=== PATIENT | female | born 1995 | race Caucasian/White ===

== ENCOUNTER 2019-03-23 16:11 | Emergency (ER) | payer OTHER ==
[~2019-03-23] VITALS: Ht 167.6 cm; Wt 54.0 kg
[~2019-03-23 16:11] MED LIST: [UNRECOGNIZED DRUG - REMARK]
--- NOTE | 2019-03-23 16:39 | NUR ---
Patient is was in room drinking water very rapidly then threw her glass on the ground and started screaming and crying. I went in the room to talk to the patient and she continues to scream and cry stating that her mom brought her here because she needs a physical check up. Patient states that she would never want to hurt any one cause that isnt right and she doesnt want to hurt her self becuase life is beautiful. only demons want to hurt people she states that she believes demons are out there because she is a Taoism. Patient is very uncooperative in the interview and states that she only wants a check up becuase her mom is crazy. Patient will randomly scream and cry through interview. Patient states that she was on depression medication but she doesnt like to take medications so she smokes weed.
[2019-03-23] MEDS ORDERED: diphenhydrAMINE 50 mg/ml inj IM ONE (16:50)
[2019-03-23] MEDS ORDERED: haloperidol lactate 5mg/ml inj IM ONE (16:50)
--- NOTE | 2019-03-23 17:12 | NUR ---
PATIENT NOW IN GREEN SCRUBS TOP AND BOTTOM; VERY RANDOM SPEECH EASILY GOES FROM CRYING, SCREAMING TO POLITE TALK, SECURITY AT BEDSIDE
--- NOTE | 2019-03-23 17:13 | NUR ---
PATIENT EATING BANANA AND DRANK 240 ML WATER
--- NOTE | 2019-03-23 17:15 | NUR ---
Pt with elopement band on.
[2019-03-23 17:16] LABS: BASOPHILS # (AUTO) 0.1 X10'3 (0-0.2); BASOPHILS % (AUTO) 0.9 % (0-1); EOSINOPHILS % (AUTO) 0.2 % (0-6); HEMATOCRIT 42.4 % (35.0-45.0); HEMOGLOBIN 14.6 g/dl (12.0-16.0); LYMPHOCYTES # (AUTO) 1.4 X10'3 (1.1-4.8); LYMPHOCYTES % (AUTO) 14.3 % (21-51); MEAN CORPUSCULAR HEMOGLOBIN 31.1 PG (27.0-31.0); MEAN CORPUSCULAR HGB CONC 34.4 g/dL (33.0-36.5); MEAN CORPUSCULAR VOLUME 90.6 FL (78-98); MEAN PLATELET VOLUME 9.8 FL (7.4-10.4); MONOCYTES # (AUTO) 1.1 X10'3 (0-0.9); MONOCYTES % (AUTO) 10.8 % (2-12); NEUTROPHILS # (AUTO) 7.3 X10'3 (1.8-7.7); NEUTROPHILS % (AUTO) 73.8 % (42-75); PLATELET COUNT 102 X10'3 (140-440); RED BLOOD COUNT 4.68 X10'6 (4.20-5.60); RED CELL DISTRIBUTION WIDTH 13.2 % (11.5-14.5); WHITE BLOOD COUNT 9.9 X10'3 (4.5-11.0)
[2019-03-23 17:33] LABS: ALANINE AMINOTRANSFERASE 33 U/L (12-78); ALBUMIN 4.4 G/DL (3.4-5.0); ALBUMIN/GLOBULIN RATIO 1.2 (1.1-1.5); ALKALINE PHOSPHATASE 75 IU/L (46-116); ANION GAP 12 (8-16); ASPARTATE AMINO TRANSFERASE 17 U/L (10-37); BILIRUBIN,TOTAL 1.8 MG/DL (0.1-1.0); BLOOD UREA NITROGEN 16 MG/DL (7-18); BUN/CREATININE RATIO 15.8 (6.6-38.0); CALCIUM 9.5 MG/DL (8.5-10.1); CHLORIDE 99 MMOL/L (99-107); CREATININE 1.01 MG/DL (0.40-0.90); GLUCOSE 93 MG/DL (70-104); POTASSIUM 3.3 MMOL/L (3.5-5.1); SODIUM 133 MMOL/L (135-145); TOTAL CARBON DIOXIDE 21.8 MMOL/L (24-32); eGFR 69 ML/MIN
[2019-03-23 17:44] LABS: ACETAMINOPHEN < 2.0 UG/ML (10-30); ETHANOL < 0.010 GM/DL (0.0-0.010)
[2019-03-23] MEDS ORDERED: potassium Cl 20 mEq SR tablet PO ONE (17:50)
[2019-03-23 18:08] LABS: URINE HCG NEGATIVE (NEG)
[2019-03-23 18:09] LABS: CLARITY,URINE CLEAR (Clear); COLOR,URINE YELLOW (Yellow); GLUCOSE, URINE NEGATIVE (Neg); KETONES,URINE TRACE mg/dl (Neg); LEUKOCYTE ESTERASE ,URINE NEGATIVE (Neg); NITRITES, URINE NEGATIVE (Neg); OCCULT BLOOD,URINE NEGATIVE (Neg); PROTEIN,URINE TRACE mg/dl (Neg); UA COLLECTION TYPE CLN CATCH MIDSTREAM; UROBILINOGEN,URINE 0.2 E.U/dL (0.2-1.0)
[2019-03-23 18:24] LABS: URINE AMPHETAMINE SCREEN NEGATIVE (Neg); URINE BARBITUATE SCREEN NEGATIVE (Neg); URINE BENZODIAZEPINES SCREEN NEGATIVE (Neg); URINE CANNABINOID SCREEN POSITIVE (Neg); URINE COCAINE SCREEN NEGATIVE (Neg); URINE METHADONE SCREEN NEGATIVE (Neg); URINE OPIATE SCREEN NEGATIVE (Neg); URINE PHENCYCLIDINE SCREEN NEGATIVE (Neg)
[2019-03-23 18:27] LABS: WBC,URINE 0-4 /HPF (0-4)
[2019-03-23 18:28] LABS: BACTERIA,URINE 3+ /HPF (Neg); MUCUS STRANDS NONE SEEN /LPF (Neg); RBC,URINE NONE SEEN /HPF (0-2); SQUAMOUS EPITHELIAL CELL,UR MANY /LPF (FEW)
--- NOTE | 2019-03-23 18:40 | NUR ---
ESCORTED PT TO RESTROOM
--- NOTE | 2019-03-23 19:15 | NUR ---
SPOKE TO ANABELL RANDOLPH IN [facility] AND SHE WILL LET NITIN STEEN KNOW THAT THIS PATIENT NEEDS TO BE SEEN
[2019-03-23] MEDS ORDERED: diazepam 5mg tablet PO ONE (19:35)
--- NOTE | 2019-03-23 20:36 | NUR ---
Pt given toothbrush, toothpaste and hairbrush. Pt up to bathroom to perform evening toilet. No assistance required.
--- NOTE | 2019-03-23 20:41 | NUR ---
This patient is in bed 20. She is awake and well oriented. Patient exhibits a hyper manic state. At this time she is cooperative with this commercial real estate underwriter. She has been medicated in the primary ER with Haldol, Benadryl, and PO Diazepam. Her speech is rapid. She has a history of psychotic break in 2014. Patient does have a Bipolar history also, the patient herself denies the validity of this. PMH of THC and alcohol use. [facility] RN is at bedside now evaluating patient. A [address] by the ER MD.
--- NOTE | 2019-03-23 20:53 | NUR ---
Packet sent to [facility]. Confirmed receipt of packet with Gene @ Inbox office.
--- NOTE | 2019-03-23 21:00 | NUR ---
This patient has been interviewed by [facility]. She is continued on the 1798. Per Mental Health RN patient will be reevaluated in the AM following a nights rest. The plan will be to release her to her mother if her thought process is much improved.
[2019-03-23] MEDS ORDERED: QUEtiapine 25mg tablet PO SCH (21:10)
[2019-03-23] MEDS ORDERED: quetiapine 100mg tablet PO SCH (21:14)
--- NOTE | 2019-03-23 23:53 | NUR ---
This patient is now quite relaxed, she intermittently awakens. The patient is polite, much more rational, she requests and is given warm blankets. She returns to sleep after being assured that she is in a safe place.
--- NOTE | 2019-03-24 04:08 | NUR ---
This patient has been sleeping all night. She is now up to the bathroom. She ambulates without problem. Patient speaks to this data analyst report writer for a short time. She states a desire to see her sister who is in town visiting. Her thought process is becoming more linear. She returns to sleep.
[2019-03-24 05:45] VITALS: BP 86/62
--- NOTE | 2019-03-24 09:37 | NUR ---
DC HOME. DEPARTED AMBULATORY IN GOOD CONDITION, ACCOMPANIED BY MOTHER.
== END 2019-03-24 09:47 ==
LOC: ER 16:12
DX: F31.9 Bipolar disorder, unspecified (principal); F79 Unspecified intellectual disabilities; F12.90 Cannabis use, unspecified, uncomplicated; Z88.8 Allergy status to other drugs, medicaments and biological substances
CPT/HCPCS: 36415; 80053; 80305; 80320; 80329; 81001; 81025; 84443; 85025; 96372; 99285; J1200; J1630

== ENCOUNTER 2019-12-18 10:58 | Emergency (ER) | payer MEDICAID, OTHER ==
[~2019-12-18] VITALS: Ht 167.6 cm; Wt 62.3 kg
[2019-12-18 11:31] LABS: BASOPHILS # (AUTO) 0.1 X10'3 (0-0.2); BASOPHILS % (AUTO) 1.9 % (0-1); EOSINOPHILS # (AUTO) 0.3 X10'3 (0-0.9); EOSINOPHILS % (AUTO) 4.2 % (0-6); HEMATOCRIT 40.7 % (35.0-45.0); HEMOGLOBIN 13.4 g/dl (12.0-16.0); LYMPHOCYTES # (AUTO) 1.6 X10'3 (1.1-4.8); LYMPHOCYTES % (AUTO) 26.3 % (21-51); MEAN CORPUSCULAR HEMOGLOBIN 29.8 PG (27.0-31.0); MEAN CORPUSCULAR VOLUME 90.5 FL (78-98); MEAN PLATELET VOLUME 9.3 FL (7.4-10.4); MONOCYTES # (AUTO) 0.8 X10'3 (0-0.9); MONOCYTES % (AUTO) 12.6 % (2-12); NEUTROPHILS # (AUTO) 3.3 X10'3 (1.8-7.7); PLATELET COUNT 70 X10'3 (140-440); RED BLOOD COUNT 4.49 X10'6 (4.20-5.60); RED CELL DISTRIBUTION WIDTH 13.4 % (11.5-14.5)
[2019-12-18 11:42] LABS: ALANINE AMINOTRANSFERASE 22 U/L (12-78); ALBUMIN 3.9 G/DL (3.4-5.0); ALBUMIN/GLOBULIN RATIO 1.2 (1.1-1.5); ALKALINE PHOSPHATASE 56 IU/L (46-116); ANION GAP 2 (8-16); ASPARTATE AMINO TRANSFERASE 20 U/L (10-37); BILIRUBIN,TOTAL 0.5 MG/DL (0.1-1.0); BLOOD UREA NITROGEN 11 MG/DL (7-18); BUN/CREATININE RATIO 15.1 (6.6-38.0); CALCIUM 8.2 MG/DL (8.5-10.1); CHLORIDE 110 MMOL/L (99-107); CREATININE 0.73 MG/DL (0.40-0.90); GLUCOSE 95 MG/DL (70-104); POTASSIUM 3.9 MMOL/L (3.5-5.1); SODIUM 141 MMOL/L (135-145); TOTAL CARBON DIOXIDE 28.7 MMOL/L (24-32); TOTAL PROTEIN 7.2 G/DL (6.4-8.2); eGFR > 90 ML/MIN
[2019-12-18 11:52] LABS: ETHANOL < 0.010 GM/DL (0.0-0.010)
--- NOTE | 2019-12-18 12:04 | NUR ---
pt arrived to ER overflow bed 27. pt changed into green scrubs. making inventory of pts belongings. pts states she's feeling interogated. pt starting to get manic. pt states she doesn't want to be in this hospital she wants to be at [facility]. Pt states she can't sleep or eat she just wants to sleep. [place] found in pts purse. pt very talkative and c/o hunger. lunch tray ordered for her.
[2019-12-18] MEDS ORDERED: MINO50CA PO (12:13)
[2019-12-18] MEDS ORDERED: PRAZ2CAP2 PO (12:13)
--- NOTE | 2019-12-18 12:24 | NUR ---
RHINA Beckman saw pt in main ER. RN made PA aware pt is slightly manic and very talkative and pt states Tomazipan helps her sleep. Seroquel doesn't help her, lots of things don't help her sleep, that's why she smokes [place]. Pt states she feels like her mind and body are not in sync with each other. Her mind is constantly running, she can't seem to calm down. "my body feels like it could climb a mountain". PA aware pt just wants to sleep and is looking in pts chart and will order something.
[2019-12-18] MEDS ORDERED: diphenhydrAMINE 25mg capsule PO ONE (12:25)
[2019-12-18] MEDS ORDERED: haloperidol lactate 5mg/ml inj IM ONE ×2 (12:25→13:40)
[2019-12-18] MEDS: haloperidol 5mg tablet PO ONE ×2 (12:35→12:45)
[2019-12-18] MEDS ORDERED: quetiapine 100mg tablet PO STA (12:44)
--- NOTE | 2019-12-18 12:45 | NUR ---
pt refused Haldol stating it will make her platelets low but pt did take Beneadryl. pts states Benadryl will do nothing for her. RHINA Beckman notified.
[2019-12-18] MEDS ORDERED: LITH300T3 PO (14:03)
[2019-12-18] MEDS: divalproex sod 250mg ER (24-hour) tablet PO SCH ×2 (14:44→21:12)
[2019-12-18 14:51] LABS: CLARITY,URINE SLIGHTLY CLOUDY (Clear); COLOR,URINE YELLOW (Yellow); GLUCOSE, URINE NEGATIVE (Neg); KETONES,URINE NEGATIVE (Neg); LEUKOCYTE ESTERASE ,URINE NEGATIVE (Neg); NITRITES, URINE NEGATIVE (Neg); OCCULT BLOOD,URINE NEGATIVE (Neg); PH,URINE 6.5 (4.8-8.0); PROTEIN,URINE NEGATIVE (Neg); UROBILINOGEN,URINE 0.2 E.U/dL (0.2-1.0)
[2019-12-18 14:53] LABS: UA COLLECTION TYPE CLN CATCH MIDSTREAM
[2019-12-18 14:56] LABS: URINE AMPHETAMINE SCREEN NEGATIVE (Neg); URINE BARBITUATE SCREEN NEGATIVE (Neg); URINE BENZODIAZEPINES SCREEN NEGATIVE (Neg); URINE CANNABINOID SCREEN POSITIVE (Neg); URINE COCAINE SCREEN NEGATIVE (Neg); URINE METHADONE SCREEN NEGATIVE (Neg); URINE OPIATE SCREEN NEGATIVE (Neg); URINE PHENCYCLIDINE SCREEN NEGATIVE (Neg)
[2019-12-18 15:00] LABS: URINE HCG NEGATIVE (NEG)
[2019-12-18 15:01] LABS: MUCUS STRANDS FEW /LPF (Neg); SQUAMOUS EPITHELIAL CELL,UR MODERATE /LPF (FEW)
[2019-12-18 15:02] LABS: BACTERIA,URINE 2+ /HPF (Neg); TRANSITIONAL EPI CELLS,URINE MODERATE /HPF
[2019-12-18 15:03] LABS: CAL OXALATE CRYSTALS FEW /HPF (NEGATIVE); RBC,URINE 0-2 /HPF (0-2); WBC,URINE 0-4 /HPF (0-4)
--- NOTE | 2019-12-18 15:11 | NUR ---
pt now resting quietly in bed. previously she had been yelling and screaming at staff saying she just wanted to sleep and nothing we give her will make her sleep. "if you want me to sleep in the middle of the day give me Temazepam that's the only thing that works. Addendum: 12/18/19 at 1539 by ROME pt continued to yell, cry, and scream and throw herself on the bed. many security guards and techs at bedside, RHINA Beckman at bedside and talked to pt. pt yelling and states everything we want to give her is going to lower her platelets. Karuna talked to Hoang LANTIGUA for mental health and ordered her Depakot and IM Haldol.
--- NOTE | 2019-12-18 15:49 | NUR ---
pt just awoke from her medicated nap. c Addendum: 12/18/19 at 1550 by ROME c/o being hungry after she previously threw lunch tray on the ground out of anger. pt inquiring about her smoothie. asking about when the [facility] worker will come talk to her.
--- NOTE | 2019-12-18 15:58 | NUR ---
PT MOVED FROM [facility] TO BED 26 VIA BED BY BOBBY LEE
--- NOTE | 2019-12-18 16:06 | NUR ---
pt calmly laying bed at this time. requesting warm water. water provided.
--- NOTE | 2019-12-18 16:45 | NUR ---
packet faxed to [facility] and called office to confirm they recieved the fax.
--- NOTE | 2019-12-18 17:05 | NUR ---
pt awake and asking to talk to the [facility] worker. states she just needs a Rx to help her sleep. states she doesn't know why no one will give it to her. "is it because of the money? 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 Zach with [facility] stating he will come and see her soon, pt aware [facility] will see her.
--- NOTE | 2019-12-18 17:40 | NUR ---
Adolfo with [facility] talking to pt at bedside.
--- NOTE | 2019-12-18 18:45 | NUR ---
PT SLEEPING AT THIS TIME. DINNER TRAY ORDERED.
--- NOTE | 2019-12-18 19:30 | NUR ---
pt sleeping. no other request or concerns at this time.
--- NOTE | 2019-12-18 20:39 | NUR ---
pt resting at this time. no other request or concerns at this time.
[2019-12-18] MEDS ORDERED: prazosin 1mg capsule PO SCH (21:00)
[2019-12-18] MEDS: lithium carbonate 150mg capsule PO SCH (21:12)
--- NOTE | 2019-12-18 21:31 | NUR ---
pt has been sleeping most of her time here. she was awakened to take her medications. she then went back to sleep.
--- NOTE | 2019-12-18 23:55 | NUR ---
[facility] CALLED TO CHECK ON PT. PT IS CURRENTLY SLEEPING. SHE REQUESTED MORE BLANKETS FOR EXTRA WEIGHT,.
--- NOTE | 2019-12-19 05:38 | NUR ---
PT SLEPT MOST OF THE NIGHT. SHE WOKE UP AROUND 0400 TO REQUEST MORE WATER AND WENT BACK TO SLEEP. PT HAS NO OTHER REQUEST OR CONCERNS AT THIS TIME.
[2019-12-19 05:54] VITALS: BP 149/68
--- NOTE | 2019-12-19 06:29 | NUR ---
RECEIVED REPORT FROM PURVI URRUTIA, PT IS SLEEPING AT THIS TIME, NO S/S OF DISTRESS, DISCOMFORT OR AGITATION, RESPIRATIONS SPONTANEOUS, EVEN AND UNLABORED, PT IN LINE OF SITE OF NURSES STATION, WILL CONTINUE TO MONITOR.
--- NOTE | 2019-12-19 07:06 | NUR ---
DR IRVIN AT BEDSIDE FOR RE-EVALUATION
[2019-12-19] MEDS: lithium carbonate 150mg capsule PO SCH (08:25)
[2019-12-19] MEDS: divalproex sod 250mg ER (24-hour) tablet PO SCH (08:25)
[2019-12-19] MEDS ORDERED: haloperidol 5mg tablet PO ONE ×2 (09:30→14:30)
--- NOTE | 2019-12-19 09:51 | NUR ---
PT WAS EXHIBITING ANXIOUS BEHAVIOR WALKING, SPINNING AROUND IN FRONT OF BED, AND RAPID SPEECH, MEDICATED PT WITH PO HALDOL 5 MG, GAVE PT LEIGH PROTEIN SMOOTHIE PER ORDERS PT ONLY ATE SOME POTATOES AND RAISANS FROM BREAKFAST TRAY
--- NOTE | 2019-12-19 10:58 | NUR ---
REPORTED TO RN BY ED BETHEL THAT PT CAME TO NURSES STATION AND REPORTED SHE JUST THREW UP, PT IS NOW LAYING BACK IN BED AT TIME, PT STATES SHE TAKES SOMETHING DAILY FOR HER STOMACH BUT DOES NOT KNOW WHAT SHE TAKES, WILL DISCUSS WITH DR MEYER
--- NOTE | 2019-12-19 12:25 | NUR ---
PT IS SLEEPING, RESPIRATIONS SPONTANEOUS, EVEN AND UNLABORED, NO S/S OF DISTRESS DISCOMFORT OR AGITATION, PT IN LINE OF SITE OF NURSES STATION, WILL CONTINUE TO MONITOR
[2019-12-19] MEDS ORDERED: JUVEN Smoothie Arginine/Glut./Ca2+Bmb (Juven 19.3pkt) 240ml cup PO SCH (13:00)
--- NOTE | 2019-12-19 13:13 | NUR ---
PT WALKED TO NURSES STATION, ASKED FOR MORE WATER, PT GIVEN MORE WATER, INFORMED LUNCH TRAYS SHOULD BE HERE SHORTLY AND SHOULD BE GOING TO [facility] SOM[facility]IME TODAY
--- NOTE | 2019-12-19 13:15 | NUR ---
GAVE PT PHONE PER REQUEST TO CALL STEP DAD TO GET MOTHER'S PHONE NUMBER
--- NOTE | 2019-12-19 14:28 | NUR ---
GAVE REPORTS TO AIDAN MUÑOZ, PT IS STARTING TO HAVE INCREASED ANXIETY/AGITATION, RECEIVED VERBAL ORDER FROM DR CAMEJO FOR 5MG PO HALDOL ONCE NOW.
[2019-12-19] MEDS ORDERED: DIVA-81 PO ×2 (14:44)
--- NOTE | 2019-12-19 14:56 | NUR ---
PT IS BEING TRANSFERRED UPSTAIRS TO [place] [facility]
--- NOTE | 2019-12-19 14:58 | NUR ---
MOM HERE TO SEE PT
--- NOTE | 2019-12-19 15:27 | NUR ---
[facility] PT TECH CAME DOWN AND INFORMED PT ON [facility] STANDARDS OF CARE. PT TAKEN UPSTAIRS WITH BELONGIINGS IN STABLE CONDITION.
== END 2019-12-19 15:44 | disposition home or self-care (01) ==
LOC: ER 10:58
DX: F31.2 Bipolar disorder, current episode manic severe with psychotic features (principal); F23 Brief psychotic disorder; F12.90 Cannabis use, unspecified, uncomplicated; Z72.89 Other problems related to lifestyle; Z88.8 Allergy status to other drugs, medicaments and biological substances; Z79.899 Other long term (current) drug therapy
CPT/HCPCS: 36415; 80053; 80178; 80305; 80320; 81001; 81025; 84443; 85025; 96372; 99285; J1630; Q0163

== ENCOUNTER 2019-12-19 11:57 | Inpatient (IN) | payer MEDICAID ==
[~2019-12-19] VITALS: Ht 168.3 cm; Wt 55.6 kg
[~2019-12-19 11:57] MED LIST changes: +LITH300T3 PO; +MINO50CA PO; +PRAZ2CAP2 PO; -[UNRECOGNIZED DRUG - REMARK]
[2019-12-19] MEDS ORDERED: NICOTINE POLACRILEX 2 MG LOZENGE BC PRN (14:25)
[2019-12-19] MEDS ORDERED: traZODone 50mg tablet PO PRN (14:25)
[2019-12-19] MEDS ORDERED: loperamide 2mg capsule PO PRN (14:25)
[2019-12-19] MEDS ORDERED: mag hydrox/Alum hydrox/simeth 30ml oral suspension PO PRN (14:25)
[2019-12-19] MEDS ORDERED: acetaminophen 325mg tablet PO PRN ×2 (14:25)
[2019-12-19] MEDS ORDERED: magnesium hydroxide 30ml (MOM) UD suspension PO PRN (14:25)
[2019-12-19] MEDS ORDERED: DIVA-81 PO ×2 (14:44)
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
[2019-12-19 20:00] VITALS: BP 126/43
[2019-12-19] MEDS: prazosin 1mg capsule PO SCH (20:23)
[2019-12-19] MEDS: divalproex sod 250mg ER (24-hour) tablet PO SCH (20:23)
[2019-12-19] MEDS: lithium carbonate 150mg capsule PO SCH (20:23)
[2019-12-19] MEDS: hydrOXYzine 25 MG tablet PO PRN ×2 (20:26→23:43)
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
[2019-12-20 07:37] VITALS: BP 117/71
[2019-12-20] MEDS: nicotine 21mg patch - 24 hr TD SCH (08:00)
[2019-12-20] MEDS: lithium carbonate 150mg capsule PO SCH ×2 (08:03→21:00)
[2019-12-20] MEDS: divalproex sod 250mg ER (24-hour) tablet PO SCH (08:04)
[2019-12-20 08:25] LABS: BASOPHILS # (AUTO) 0.1 X10'3 (0-0.2); BASOPHILS % (AUTO) 1.3 % (0-1); EOSINOPHILS # (AUTO) 0.3 X10'3 (0-0.9); EOSINOPHILS % (AUTO) 4.1 % (0-6); HEMATOCRIT 40.7 % (35.0-45.0); HEMOGLOBIN 13.5 g/dl (12.0-16.0); LYMPHOCYTES # (AUTO) 1.8 X10'3 (1.1-4.8); LYMPHOCYTES % (AUTO) 29.4 % (21-51); MEAN CORPUSCULAR HEMOGLOBIN 29.5 PG (27.0-31.0); MEAN CORPUSCULAR HGB CONC 33.1 g/dL (33.0-36.5); MEAN CORPUSCULAR VOLUME 89.3 FL (78-98); MEAN PLATELET VOLUME 10.2 FL (7.4-10.4); MONOCYTES # (AUTO) 0.7 X10'3 (0-0.9); MONOCYTES % (AUTO) 11.4 % (2-12); NEUTROPHILS # (AUTO) 3.4 X10'3 (1.8-7.7); NEUTROPHILS % (AUTO) 53.8 % (42-75); PLATELET COUNT 60 X10'3 (140-440); RED BLOOD COUNT 4.56 X10'6 (4.20-5.60); RED CELL DISTRIBUTION WIDTH 13.2 % (11.5-14.5); WHITE BLOOD COUNT 6.2 X10'3 (4.5-11.0)
[2019-12-20 08:33] LABS: CHOL/HDL RATIO 2.2 (0.00-4.99); CHOLESTEROL 96 MG/DL (0-200); HDL CHOLESTEROL 43 MG/DL (35-60); LDL CHOLESTEROL 49 MG/DL (50-100); TRIGLYCERIDES 43 MG/DL (20-135)
[2019-12-20 08:50] LABS: HEMOGLOBIN A1C 4.5 % (4.5-6.2)
--- NOTE | 2019-12-20 12:59 | NUR ---
Malnutrition consult. Per documented weight history there has been no weight loss in the past year. Last documented weight 54 kg from March 2019, current weight 55.6 kg. Ate 75-100% of one more so far. Normal muscle strength. no edema. No malnutrition. Will follow per policy. Addendum: 12/20/19 at [address] Amended: Links added.
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
[2019-12-20] MEDS: pantoprazole 40mg Tablet.DR PO SCH (16:21)
--- NOTE | 2019-12-20 17:02 | NUR ---
SS note for earlier [id number] contact (1100): Obie MUÑOZ brought Ct to [address] stated, "I need to leave. I'm freezing. I have a blood condition [?]." Ct left group.
[2019-12-20] MEDS: multivitamins, therapeutics tablet PO SCH (17:21)
[2019-12-20 17:32] LABS: BASOPHILS # (AUTO) 0.1 X10'3 (0-0.2); BASOPHILS % (AUTO) 1.3 % (0-1); EOSINOPHILS # (AUTO) 0.1 X10'3 (0-0.9); EOSINOPHILS % (AUTO) 2.4 % (0-6); HEMATOCRIT 41.8 % (35.0-45.0); LYMPHOCYTES # (AUTO) 1.6 X10'3 (1.1-4.8); MEAN CORPUSCULAR HGB CONC 33.6 g/dL (33.0-36.5); MEAN CORPUSCULAR VOLUME 89.5 FL (78-98); MEAN PLATELET VOLUME 9.9 FL (7.4-10.4); MONOCYTES # (AUTO) 0.6 X10'3 (0-0.9); MONOCYTES % (AUTO) 10.7 % (2-12); NEUTROPHILS # (AUTO) 3.6 X10'3 (1.8-7.7); NEUTROPHILS % (AUTO) 59.6 % (42-75); PLATELET COUNT 67 X10'3 (140-440); RED BLOOD COUNT 4.67 X10'6 (4.20-5.60); RED CELL DISTRIBUTION WIDTH 13.2 % (11.5-14.5)
[2019-12-20 20:00] VITALS: BP 106/75
[2019-12-20] MEDS ORDERED: olanzapine 10mg tablet PO SCH (21:00)
[2019-12-20] MEDS: prazosin 1mg capsule PO SCH (21:01)
[2019-12-20] MEDS: hydrOXYzine 25 MG tablet PO PRN (22:58)
[2019-12-21] MEDS: hydrOXYzine 25 MG tablet PO PRN ×2 (04:07→19:35)
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
[2019-12-21] MEDS: pantoprazole 40mg Tablet.DR PO SCH (06:50)
[2019-12-21] MEDS: nicotine 21mg patch - 24 hr TD SCH (08:00)
[2019-12-21] MEDS: lithium carbonate 150mg capsule PO SCH (08:16)
[2019-12-21] MEDS: multivitamins, therapeutics tablet PO SCH (08:16)
[2019-12-21 08:45] VITALS: BP 137/75
[2019-12-21] MEDS: triamcinolone acet 0.1% cream 15gm TP SCH (17:20)
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
[2019-12-21 19:00] VITALS: BP 135/70
[2019-12-21] MEDS ORDERED: OLANZAPINE 5 MG TABLET PO SCH (21:00)
[2019-12-21] MEDS ORDERED: lithium carbonate 150mg capsule PO SCH (21:00)
[2019-12-21] MEDS: prazosin 1mg capsule PO SCH (21:35)
[2019-12-22] MEDS: hydrOXYzine 25 MG tablet PO PRN ×3 (01:04→09:12)
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
[2019-12-22 07:00] VITALS: BP 134/87
[2019-12-22] MEDS: pantoprazole 40mg Tablet.DR PO SCH (07:43)
[2019-12-22] MEDS: multivitamins, therapeutics tablet PO SCH (07:43)
[2019-12-22] MEDS: triamcinolone acet 0.1% cream 15gm TP SCH (07:43)
[2019-12-22] MEDS ORDERED: lithium carbonate 150mg capsule PO SCH (08:00)
--- NOTE | 2019-12-22 13:23 | NUR ---
Dietary TC: Pt diet order requesting "gluten free, chicken or turkey, rice, veggies, and soy sauce for all meals." Current soy sauce is not gluten free so unable to send. Gluten not in current allergy list on EMR and pt has no hx Celiacs per EMR. Also unable to send these options TID given unable to meet pt micronutrient needs w/ current request; will be able to send w/ lunch and dinners. Dietary notified. Will continue to monitor. Addendum: 12/22/19 at [address] Amended: Links added.
[2019-12-22] MEDS ORDERED: LITH300T3 PO (14:59)
[2019-12-22] MEDS ORDERED: OLAN10TA19 PO (14:59)
[2019-12-22] MEDS ORDERED: KEN0.1O TP (14:59)
[2019-12-22] MEDS ORDERED: TEMA30CA5 PO (15:02)
--- NOTE | 2019-12-22 15:30 | NUR ---
DISCHARGE NOTE: Patient's belongings were inventoried, discharge instructions were given to patient along with prescriptions. Patient denies SI/HI. Patient plans on staying with her mother. Patient is escorted out at 1530.
--- NOTE | 2019-12-23 08:33 | NUR ---
Pt's d/c'd, SS referral closed. Josselin Cline, [facility] Addendum: 12/23/19 at 0834 by Josselin Cline SS Amended: Links added.
--- NOTE | 2019-12-25 23:13 | NUR ---
Pt contacted unit to speak with Dr Frederick about issues with her medications. This information was passed on to Dr Frederick and he contacted the patient and per Dr Frederick the patient was hyperverbal, difficult to redirect and he advised her that due to her current condition he recommended that she report to either the ER for eval or to see her outpatient psychiatrist Dr Carney to address her current state.
== END 2019-12-22 15:35 | disposition home or self-care (01) | DRG 753 ==
LOC: ADULT MH 11:57
PROVIDERS: ADMIT Psychiatry & Neurology Psychiatry; ATTEND Psychiatry & Neurology Psychiatry
DX: F31.89 Other bipolar disorder (principal); D69.59 Other secondary thrombocytopenia; F12.90 Cannabis use, unspecified, uncomplicated; F17.210 Nicotine dependence, cigarettes, uncomplicated; F43.10 Post-traumatic stress disorder, unspecified; G47.00 Insomnia, unspecified; T50.905A Adverse effect of unspecified drugs, medicaments and biological substances, initial encounter; K21.9 Gastro-esophageal reflux disease without esophagitis; F39 Unspecified mood [affective] disorder; Z79.899 Other long term (current) drug therapy; Z82.49 Family history of ischemic heart disease and other diseases of the circulatory system; Z83.3 Family history of diabetes mellitus; Z82.5 Family history of asthma and other chronic lower respiratory diseases; Z83.42 Family history of familial hypercholesterolemia; Y92.89 Other specified places as the place of occurrence of the external cause
CPT/HCPCS: 36415; 80061; 83036; 85025; 87081; 99285; Z7610

== ENCOUNTER 2020-02-11 12:38 | Inpatient (IN) | payer MEDICAID ==
[~2020-02-11] VITALS: Ht 167.6 cm; Wt 58.8 kg
[~2020-02-11 12:38] MED LIST changes: +KEN0.1O TP; +OLAN10TA19 PO
[2020-02-11] MEDS ORDERED: acetaminophen 325mg tablet PO PRN (19:30)
[2020-02-11] MEDS ORDERED: NICOTINE POLACRILEX 2 MG LOZENGE BC PRN (19:30)
[2020-02-11] MEDS ORDERED: hydrOXYzine 25 MG tablet PO PRN (19:30)
[2020-02-11 20:12] VITALS: BP 151/97
[2020-02-11] MEDS: QUEtiapine 25mg tablet PO PRN (20:24)
[2020-02-11] MEDS: olanzapine 10mg tablet PO SCH (20:45)
[2020-02-11] MEDS: prazosin 1mg capsule PO SCH (20:45)
[2020-02-11] MEDS ORDERED: quetiapine 100mg tablet PO ONE (21:05)
[2020-02-11] MEDS ORDERED: lithium carbonate 150mg capsule PO ONE (21:05)
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
[2020-02-11] MEDS ORDERED: mag hydrox/Alum hydrox/simeth 30ml oral suspension PO PRN (21:45)
[2020-02-11] MEDS ORDERED: haloperidol 5mg tablet PO ONE (22:00)
[2020-02-11] MEDS ORDERED: diphenhydrAMINE 25mg capsule PO ONE (22:00)
[2020-02-12] MEDS ORDERED: temazepam 15mg capsule PO PRN (00:15)
[2020-02-12] MEDS: QUEtiapine 25mg tablet PO PRN ×4 (04:07→19:13)
[2020-02-12] MEDS ORDERED: OLANZapine **IM** 10 mg inj. IM ONE ×2 (04:54→04:55)
[2020-02-12] MEDS ORDERED: benztropine 1 mg/ml 2ml ampule IV ONE (04:55)
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
[2020-02-12 07:30] VITALS: BP 127/71
[2020-02-12] MEDS ORDERED: LORazepam 1 MG tablet PO ONE (12:45)
[2020-02-12] MEDS ORDERED: haloperidol 5mg tablet PO ONE (12:45)
[2020-02-12] MEDS ORDERED: diphenhydrAMINE 25mg capsule PO ONE (12:45)
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
[2020-02-12 20:00] VITALS: BP 139/83
[2020-02-12] MEDS ORDERED: quetiapine 100mg tablet PO ONE (21:00)
[2020-02-12] MEDS: olanzapine 10mg tablet PO SCH (22:34)
[2020-02-12] MEDS: lithium carbonate 450mg CR tablet PO SCH (22:34)
[2020-02-12] MEDS: prazosin 1mg capsule PO SCH (22:34)
[2020-02-12] MEDS: haloperidol 5mg tablet PO PRN (23:32)
[2020-02-12] MEDS: diphenhydrAMINE 25mg capsule PO PRN (23:32)
[2020-02-12] MEDS: LORazepam 1 MG tablet PO PRN (23:33)
[2020-02-13] MEDS ORDERED: temazepam 15mg capsule PO ONE (00:35)
--- NOTE | 2020-02-13 05:00 | NUR ---
Nursing Progress Note: Legal hold: 5150 Client on involuntary status for DTS Report received from Salo MUÑOZ with use of SBAR. Why are they here:. Pt admitted from [place]. Pt was placed on a 5150 for DTS after attempting to jump out of a moving car. When police arrived, patient stated that she wanted to kill herself. Pt is labile, with pressured speech, tangential, with little to no insight, blaming her current situation on "lies told by her boyfriend and the police." Assessment What has happened this shift: Pt is polite at shift change but gets increasingly intrusive and labile as the evening goes on. Pt allowed 1:1 assessment and was medication compliant, but perseverated on "needing tenazepam" in order to sleep. She has pressured speech and gets upset very easily with staff if they do not attend to her immediately. She talks about having flash backs all day and night. She takes 50 mg seroquel PRN at 2000, then her HS medication which was 900mg lithium, 400 my seroquel, 10mg zyprexa, and 2mg minipress at 2100. PT was able to sleep for about 1 hour, then woke back up and was yelling and accusing staff about not caring about her. Pt was given 50 mg benadryl, 2mg ativan, 10mg halodol at 23:30. Pt was up for an hour after taking this yelling, pacing in the lópez and coming up to the nurses station approx every 2 minutes yelling at staff. She lays in her room screaming. Staff tries to redirect pt with food, music, and company, but it is ineffective. is called, restoril 30mg ordered and given with better effect. S/I, H/I: Denies A/VH: Denies Sleep: see sleep assessment ADL's: Independent Group attendance: n/a Were meds taken: Yes Any med S/E: None noted or reported. Mental Status Exam Appearance: in unit scrubs Eye contact: Good Behavior: Agitated, argumentative Speech: Pressured, Hyperverbal Mood: Agitated, anxious Affect: Congruent with mood Thought process: Tangential Thought Content: Getting immediate needs met Cognition: A/O x4 Insight: Poor Judgment: Poor Interventions PRN's used: Seroquel, Ativan, Haldol, Benadryl, restoril Therapeutic interventions: 1:1 assessment, encouragement to express thoughts and feelings, active listening, therapeutic conversation, medication administration/education/monitoring, behavior monitoring and intervention as needed, positive reinforcement, Q 15 min safety checks. Restraints/seclusion/emergency medication: n/a Justification of Continued Inpatient Treatment: Pt needs medication adjustment and monitoring in a safe and therapeutic environment until stable to prevent harm to herself.
[2020-02-13 07:20] LABS: BASOPHILS # (AUTO) 0.1 X10'3 (0-0.2); BASOPHILS % (AUTO) 1.2 % (0-1); EOSINOPHILS # (AUTO) 0.4 X10'3 (0-0.9); EOSINOPHILS % (AUTO) 6.7 % (0-6); HEMATOCRIT 38.6 % (35.0-45.0); HEMOGLOBIN 12.8 g/dl (12.0-16.0); LYMPHOCYTES # (AUTO) 1.8 X10'3 (1.1-4.8); LYMPHOCYTES % (AUTO) 29.6 % (21-51); MEAN CORPUSCULAR HEMOGLOBIN 29.5 PG (27.0-31.0); MEAN CORPUSCULAR HGB CONC 33.1 g/dL (33.0-36.5); MEAN CORPUSCULAR VOLUME 89.2 FL (78-98); MEAN PLATELET VOLUME 10.6 FL (7.4-10.4); MONOCYTES # (AUTO) 0.8 X10'3 (0-0.9); MONOCYTES % (AUTO) 12.7 % (2-12); NEUTROPHILS # (AUTO) 3.1 X10'3 (1.8-7.7); NEUTROPHILS % (AUTO) 49.8 % (42-75); PLATELET COUNT 55 X10'3 (140-440); RED BLOOD COUNT 4.32 X10'6 (4.20-5.60); RED CELL DISTRIBUTION WIDTH 13.9 % (11.5-14.5); WHITE BLOOD COUNT 6.1 X10'3 (4.5-11.0)
[2020-02-13 08:00] VITALS: BP 135/91
[2020-02-13 08:12] LABS: LARGE PLATELETS FEW; PLATELET ESTIMATE DECREASED
[2020-02-13] MEDS ORDERED: haloperidol lactate 5mg/ml inj ONE (08:59)
[2020-02-13] MEDS ORDERED: diphenhydrAMINE 50 mg/ml inj ONE (09:00)
[2020-02-13] MEDS ORDERED: LORazepam 2 mg/ml vial ONE (09:00)
[2020-02-13] MEDS ORDERED: pantoprazole 40mg Tablet.DR PO SCH (09:25)
--- NOTE | 2020-02-13 09:30 | NUR ---
Thrombocytopenia: Pt. has a history of thrombocytopenia. Platelet count today 02/13/20 is 55 which is decreased from 02/08/20 when it was 88. Per Dr. Woody, do weekly CBCs and continue to monitor for any development of bleeding s/s. Will endorse to AM shift. RHINA Zeng also notified,obtained orders to discontinue pt's scheduled Minocin r/t possible adverse S/E (increased thrombocytopenia), and start multivitamin and Protonix.
[2020-02-13] MEDS: multivitamins, therapeutics tablet PO SCH (10:04)
[2020-02-13] MEDS: QUEtiapine 25mg tablet PO PRN ×2 (10:14→11:16)
[2020-02-13] MEDS: haloperidol 5mg tablet PO PRN ×2 (10:27→17:33)
[2020-02-13] MEDS: diphenhydrAMINE 25mg capsule PO PRN ×2 (10:27→17:33)
[2020-02-13] MEDS: LORazepam 1 MG tablet PO PRN ×2 (10:27→17:33)
[2020-02-13] MEDS: pantoprazole 40mg Tablet.DR PO SCH (10:56)
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
--- NOTE | 2020-02-13 17:30 | NUR ---
Pt. requested medication for dermatitis, this specifications writer attempted to look up which topical medication pt. had been on during her previous visit because pt. did not remember the name of the medication she uses at home. Pt. became agitated, yelling, talking over staff, and posturing. She yelled out, "You're not listening to me! You need to look it up on [employer]!" Pt. unable to be redirected by staff and continued to yell in the hallway, she had to be directed back to her room by male staff. Pt. remains very labile, one minute yelling out and very agitated ,and the next minute tearful. PRN oral B52 administered with effectiveness. Pt. then able to communicate in an appropriate manner without becoming agitated. Obtained order for Hydrocortisone Cream for dermatis per RHINA Zeng, will endorse to Noc shift.
[2020-02-13] MEDS: quetiapine 100mg tablet PO SCH ×2 (18:03→20:22)
[2020-02-13] MEDS ORDERED: temazepam 15mg capsule PO PRN (19:30)
[2020-02-13 19:48] VITALS: BP 137/96
[2020-02-13] MEDS: lithium carbonate 450mg CR tablet PO SCH (20:21)
[2020-02-13] MEDS: olanzapine 10mg tablet PO SCH (20:21)
[2020-02-13] MEDS: prazosin 1mg capsule PO SCH (20:22)
[2020-02-13] MEDS: hydrocortisone 1% cream 28gm TP SCH ×2 (20:22→21:00)
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
[2020-02-14] MEDS: pantoprazole 40mg Tablet.DR PO SCH (06:58)
[2020-02-14] MEDS ORDERED: pantoprazole 40mg Tablet.DR PO SCH (07:30)
[2020-02-14 08:00] VITALS: BP 126/76
[2020-02-14] MEDS: multivitamins, therapeutics tablet PO SCH (08:18)
[2020-02-14] MEDS: hydrocortisone 1% cream 28gm TP SCH ×3 (08:21→21:00)
[2020-02-14] MEDS: quetiapine 100mg tablet PO SCH ×4 (08:59→21:11)
[2020-02-14] MEDS: LORazepam 1 MG tablet PO PRN ×3 (09:00→21:11)
[2020-02-14] MEDS: diphenhydrAMINE 25mg capsule PO PRN (09:22)
--- NOTE | 2020-02-14 11:03 | NUR ---
Nursing Note: Pt. has a history of thrombocytopenia and platelet level was 55 yesterday. Pt. having small bloody noses/ sputum today. Dr. Dumont notified, orders to put ice on patient's nose, keep moist, and continue to monitor.
--- NOTE | 2020-02-14 14:35 | NUR ---
Pt. up in the hallway yelling demands to staff at this time, she continues to be very labile, intrusive, and becomes easily agitated. Pt. uses profanities, calls staff names, and minimally responds to redirection r/t perseveration over what has caused her to become agitated, and talking over staff. She appears to attempt to staff split in an attempt to get her demands met. PRN Ativan administered at this time, and pt. requests to listen to music, will continue to monitor.
--- NOTE | 2020-02-14 17:17 | NUR ---
Nursing Progress Note: Legal hold: 5150 Client on voluntary/involuntary status for DTS Report received from nurse with use of SBAR: WANDA Hernandez Why are they here: Pt admitted from [place]. Pt was placed on a 5150 for DTS after attempting to jump out of a moving car. When police arrived, patient stated that she wanted to kill herself. Pt is labile, with pressured speech, tangential, with little to no insight, blaming her current situation on "lies told by her boyfriend and the police." Assessment What has happened this shift: Received pt. pacing in the hallway at the beginning of the shift, she continues to present as restless, anxious ,impulsive, labile, agitated at times, and hypomanic. Pt. is perseverating over wanting to be discharged when her 5150 hold is over today. Staff provided education to pt. that this is up to the doctor and also depends on her behaviors on the unit, pt. reported understanding. 1:1 completed at bedside, pt. denies S/I, however continues to present as very anxious and possibly paranoid regarding medications and somatic complaints. She states, "That Atrax I had this morning made me feel weird, you guys are just trying to keep me drugged!" Pt. refused to take scheduled Seroquel despite medication education, and became very agitated. Pt. yelling out, "You guys are forcing me to take medications to sedate me!" This curriculum writer attempted to provide pt. education that she has the right to refuse medications, however pt. yelling out, inconsolable, and talking over this curriculum writer. Pt. continued to yell out, "That's not how it came across! I have flashbacks and you remind me of another nurse who was demanding!" With the help of the CRN, pt. was able to be redirected, she became almost tearful. Pt. later consented to taking scheduled Seroquel and requested PRN Ativan, administered with effectiveness and pt. was able to take a nap in the afternoon. Pt. continued to perseverate throughout the day on discharge, medications, and various somatic complaints, PRN Ativan administered again in the afternoon per pt. request/anxiety. She frequently yells out, "I'm so anxious!" and remains very labile and demanding to staff throughout the shift. Boundaries and limit-setting in place, will endorse to Noc shift and continue to monitor. S/I, H/I: Denies A/VH: Denies, does not appear internally preoccupied Sleep: Pt. reports she slept a lot better, sleep hours are 5.5 ADL's: Requires some direction from staff Group attendance: N/A Were meds taken: Yes Any med S/E: None Mental Status Exam Appearance: Neat and appropriately dressed Eye contact: Fair, intense at times Behavior: Restless, anxious, agitated, impulsive, mood very labile and appears manic. Speech: Irritable, when agitated pressured and intense Mood: Restless and agitated at times Affect: Labile Thought process: Tangental and circumstantial Thought Content: Paranoid and grandiose delusions Cognition: A&O X3 (not to why here) Insight: Poor Judgment: Poor Interventions PRN's used: Ativan X2 and Benadryl X1 Therapeutic interventions: Ensured contract for safety, maintained a safe and therapeutic environment, monitored behavior and need for intervention, provided clear and simple directions, attempted to orient to reality, provided medication education, provided redirection and limit-setting as needed, and maintained Q 15min safety checks. Restraints/seclusion/emergency medication: N/A Justification of Continued Inpatient Treatment: Pt. requires medication adjustments and a safe and supportive environment.
[2020-02-14] MEDS: haloperidol 5mg tablet PO PRN (18:49)
[2020-02-14 19:43] VITALS: BP 129/87
[2020-02-14] MEDS: olanzapine 10mg tablet PO SCH (21:11)
[2020-02-14] MEDS: lithium carbonate 450mg CR tablet PO SCH (21:11)
[2020-02-14] MEDS: temazepam 15mg capsule PO SCH (21:11)
[2020-02-14] MEDS: prazosin 1mg capsule PO SCH (21:11)
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
[2020-02-15] MEDS: pantoprazole 40mg Tablet.DR PO SCH (07:32)
[2020-02-15] MEDS: multivitamins, therapeutics tablet PO SCH (07:33)
[2020-02-15 08:00] VITALS: BP 140/92
[2020-02-15] MEDS: hydrocortisone 1% cream 28gm TP SCH ×3 (08:00→20:36)
[2020-02-15] MEDS: quetiapine 100mg tablet PO SCH ×4 (10:34→20:07)
[2020-02-15] MEDS: haloperidol 5mg tablet PO PRN ×2 (11:31→21:18)
[2020-02-15] MEDS: diphenhydrAMINE 25mg capsule PO PRN (11:31)
[2020-02-15] MEDS: LORazepam 1 MG tablet PO PRN ×2 (11:31→19:08)
[2020-02-15] MEDS ORDERED: acetaminophen 325mg tablet PO PRN ×2 (14:10)
[2020-02-15] MEDS ORDERED: loperamide 2mg capsule PO PRN (14:10)
[2020-02-15] MEDS ORDERED: propranolol 10mg tablet PO ONE (14:35)
[2020-02-15] MEDS: magnesium hydroxide 30ml (MOM) UD suspension PO PRN ×2 (14:41→14:43)
--- NOTE | 2020-02-15 16:43 | NUR ---
Nursing Progress Note: Legal hold: 5250 Client on voluntary/involuntary status for DTS Report received from nurse with use of SBAR: WANDA Farnsworth Why are they here: Pt admitted from [place]. Pt was placed on a 5150 for DTS after attempting to jump out of a moving car. When police arrived, patient stated that she wanted to kill herself. Pt is labile, with pressured speech, tangential, with little to no insight, blaming her current situation on "lies told by her boyfriend and the police." Assessment What has happened this shift: Patient awake and singing in the day room at change of shift. She is labile and appears easily agitated at times. She is takes her medications with reassurance. She had an episode of agitation where she yelled and cussed at the take down sorter. Oral B-52 was given for agitation. Patient took the Benadryl without incident but needed confirmation via googling what medications cause thrombocytopenia prior to taking the Haldol and lorazepam. Lorazepam is on this patient's chart as an allergy. She states that she is not allergic. Discussed with Dr. Frederick and this was administered. Patient still with anxiety. Dr. Singh prescribed Indural TID. Patient c/o constipation. Prune juice given to patient. She refused MOM. She is noted to be perseverating on information stated by Dr. Frederick regarding her diagnoses and why she is here that she states were inaccurate. She also made some delusional statements, "Lyndon is a smirker and he is a liar and a bully", referring to the take down sorter. She is seen watching the movie in the group room and eating popcorn after lunch. he is also seen socializing, loudly and inappropriately at times with staff and peers. She is seen in the afternoon, wearing headphones and napping. S/I, H/I: Denies A/VH: Denies, does not appear internally preoccupied Sleep: Pt. reports difficulty sleeping, sleep hours are 7 hours last night. She is irritated that she could not take a nap in the early part of the day, but naps in the afternoon ADL's: Requires some direction from staff Group attendance: N/A, seen watching movie in the group room with peers Were meds taken: Yes Any med S/E: None Mental Status Exam Appearance: Hair braided, appropriately dressed Eye contact: Fair, intense at times Behavior: Restless, anxious, agitated, impulsive, mood very labile and appears manic. Speech: Irritable, when agitated pressured and intense Mood: Restless and agitated Affect: Labile Thought process: Tangental and disorganized Thought Content: Paranoid and accusatory Cognition: A&O X3 (not to why here) Insight: Poor Judgment: Poor Interventions PRN's used: oral B52 Therapeutic interventions: Introduced self and attempted to establish rapport, ensured contract for safety, maintained a safe and therapeutic environment, monitored behavior and need for intervention, provided clear and simple directions, attempted to orient to reality, provided redirection and medication as needed, and maintained Q 15min safety checks. Restraints/seclusion/emergency medication: N/A
[2020-02-15 19:50] VITALS: BP 132/84
[2020-02-15] MEDS: prazosin 1mg capsule PO SCH (20:07)
[2020-02-15] MEDS: docusate sod 100mg capsule PO SCH (20:07)
[2020-02-15] MEDS: temazepam 15mg capsule PO SCH (20:07)
[2020-02-15] MEDS: lithium carbonate 450mg CR tablet PO SCH (20:07)
[2020-02-15] MEDS: propranolol 10mg tablet PO SCH (20:08)
[2020-02-16] MEDS: LORazepam 1 MG tablet PO PRN ×4 (01:12→23:20)
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
[2020-02-16] MEDS: pantoprazole 40mg Tablet.DR PO SCH (07:41)
[2020-02-16] MEDS: multivitamins, therapeutics tablet PO SCH (07:42)
[2020-02-16] MEDS: propranolol 10mg tablet PO SCH ×3 (07:42→20:40)
[2020-02-16] MEDS: docusate sod 100mg capsule PO SCH ×2 (07:42→20:40)
[2020-02-16] MEDS: hydrocortisone 1% cream 28gm TP SCH ×3 (07:47→21:00)
[2020-02-16 08:04] VITALS: BP 125/71
[2020-02-16] MEDS: quetiapine 100mg tablet PO SCH ×4 (08:24→20:40)
[2020-02-16] MEDS: diphenhydrAMINE 25mg capsule PO PRN ×3 (09:24→23:20)
[2020-02-16] MEDS: haloperidol 5mg tablet PO PRN ×3 (09:24→23:20)
--- NOTE | 2020-02-16 10:16 | NUR ---
Initial: Pt admit w/ SI and bipolar disorder on 5150 hold per MD. PO 75-100% avg regular meals meeting needs. LBM 02/13 large; documented as constipated though refused MoM 02/14 and is receiving colace routinely. Possibly documentation error. Receiving MVI. No nutrition concerns at this time. Will continue to monitor. Rec: 1. continue regular diet 2. routine bowel care 3. wt per rx Addendum: 02/16/20 at [address] Amended: Links added.
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
--- NOTE | 2020-02-16 19:13 | NUR ---
This patient exhibits high anxiety. Asha is ambulating the hallway, she states she needs to speak with Dr.Z MICHELLE. Patient then calls her mother on the phone, she commands her mother to get a hold of Dr. Singh. The patient gives this junior copywriter permission to give mother information concerning her care. This junior copywriter speaks with Asha's mother. The mother expresses concern that Asha may be released too soon? The mother is reassured that careful treatment and care will be given to Asha and there is no immediate release pending. This junior copywriter arranged for Dr. Garcia to see this patient. The patient calms somewhat at this news. At the time of this writing Dr. Singh evaluating this patient in his office.
[2020-02-16 20:00] VITALS: BP 135/90
[2020-02-16] MEDS: temazepam 15mg capsule PO SCH (20:39)
[2020-02-16] MEDS: prazosin 1mg capsule PO SCH (20:40)
[2020-02-16] MEDS: lithium carbonate 450mg CR tablet PO SCH (20:40)
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
--- NOTE | 2020-02-16 23:25 | NUR ---
Patient in hallway, she requested her haldol, benadryl, and ativan for her anxiety. Patient then spilled apple juice on herself. Patient is given clean scrubs, a towel, she is directed to her room. About five minutes after being in room patient is crying loudly and being disruptive. A tech is at bedside trying to reason with this patient.
[2020-02-17] MEDS: LORazepam 1 MG tablet PO PRN ×2 (06:02→12:22)
[2020-02-17] MEDS: diphenhydrAMINE 25mg capsule PO PRN (06:03)
[2020-02-17] MEDS: propranolol 10mg tablet PO SCH ×2 (08:08→12:22)
[2020-02-17] MEDS: docusate sod 100mg capsule PO SCH (08:09)
[2020-02-17] MEDS: pantoprazole 40mg Tablet.DR PO SCH (08:09)
[2020-02-17] MEDS: quetiapine 100mg tablet PO SCH ×2 (08:09→12:22)
[2020-02-17] MEDS: multivitamins, therapeutics tablet PO SCH (08:09)
[2020-02-17] MEDS: hydrocortisone 1% cream 28gm TP SCH ×2 (08:11→13:30)
[2020-02-17 08:51] VITALS: BP 112/70
[2020-02-17] MEDS ORDERED: QUET400T12 PO (14:29)
[2020-02-17] MEDS ORDERED: DIPH50CA3 PO (14:29)
[2020-02-17] MEDS ORDERED: LITH300T3 PO (14:29)
[2020-02-17] MEDS ORDERED: PRAZ2CAP2 PO (14:29)
[2020-02-17] MEDS ORDERED: PROP20TA6 PO (14:29)
[2020-02-17] MEDS ORDERED: HALO5TAB PO (14:29)
[2020-02-17] MEDS ORDERED: TEMA30CA PO (14:29)
[2020-02-17] MEDS ORDERED: QUET100T33 PO (14:29)
--- NOTE | 2020-02-17 14:52 | NUR ---
Discharge Note: Pt dc'd to mother at 1445. Pt escorted to front of hospital by staff and security. Discharge Instructions including medications and f/u appt explained to the pt and she verbalized understanding and signed and copy given to the pt. Smoking cessation information given to the pt. Pt happy for dc and denies depression and denies S.I./H.I. All belongings returned to the pt and she signed as having received all.
--- NOTE | 2020-02-17 15:21 | NUR ---
Discharge Presenting Issues: Pt's 5250 certification has gone missing, pt does not want to continue hospitalization via voluntary status. Intervention: MDT consultation, per consultation, pt is not yet stable for d/c, SS recommend collaboration w/[facility] for pt to d/c and be taken to [facility] to meet w/an mannequin sander and finisher there for an intake and if [facility] feels that an involutary hold is needed, they will facilitate pt's access to a 5150 Hold. SS met w/pt to finalize dcp, per session, pt wants to contact her mother and arrange transportation home, pt insists that she's already has an appointment set up with the [facility] and does not need to go to [facility] upon d/c. SS had t/c with pt's mother, mother confirmed that she is on her way to [facility] to black pickler pt, SS suggests that if pt was willing to, mother can take pt into [facility] to establish outpatient services. Plan: Pt to d/c to mom's care today. Josselin Cline LCSW Addendum: 02/17/20 at 1524 by Josselin LOPES Amended: Links added.
== END 2020-02-17 14:45 | disposition home or self-care (01) | DRG 753 ==
LOC: ADULT MH 19:07
PROVIDERS: ADMIT Psychiatry & Neurology Psychiatry; ATTEND Psychiatry & Neurology Psychiatry
DX: F31.89 Other bipolar disorder (principal); D69.3 Immune thrombocytopenic purpura; I50.9 Heart failure, unspecified; E78.00 Pure hypercholesterolemia, unspecified; Z79.899 Other long term (current) drug therapy; F17.200 Nicotine dependence, unspecified, uncomplicated; K21.9 Gastro-esophageal reflux disease without esophagitis; F41.9 Anxiety disorder, unspecified
CPT/HCPCS: 36415; 85025; 99285; J0515; J1200; J1630; J2060; J3490; Q0163; Z7610

== ENCOUNTER 2020-02-19 11:35 | Emergency (ER) | payer MEDICAID ==
[~2020-02-19] VITALS: Ht 170.2 cm; Wt 61.8 kg
[~2020-02-19 11:35] MED LIST changes: +DIPH50CA3 PO; +HALO5TAB PO; -OLAN10TA19 PO; +PROP20TA6 PO; +QUET100T33 PO; +QUET400T12 PO; +TEMA30CA PO
[2020-02-19] MEDS ORDERED: haloperidol lactate 5mg/ml inj IM ONE (11:45)
[2020-02-19] MEDS ORDERED: diphenhydrAMINE 50 mg/ml inj IM ONE (11:45)
[2020-02-19] MEDS ORDERED: quetiapine 100mg tablet PO STA (11:53)
[2020-02-19 12:11] LABS: BASOPHILS # (AUTO) 0.1 X10'3 (0-0.2); BASOPHILS % (AUTO) 1.1 % (0-1); EOSINOPHILS # (AUTO) 0.4 X10'3 (0-0.9); EOSINOPHILS % (AUTO) 3.8 % (0-6); HEMATOCRIT 41.5 % (35.0-45.0); HEMOGLOBIN 13.5 g/dl (12.0-16.0); LYMPHOCYTES % (AUTO) 17.8 % (21-51); MEAN CORPUSCULAR HEMOGLOBIN 29.2 PG (27.0-31.0); MEAN CORPUSCULAR HGB CONC 32.7 g/dL (33.0-36.5); MEAN CORPUSCULAR VOLUME 89.3 FL (78-98); MEAN PLATELET VOLUME 10.1 FL (7.4-10.4); MONOCYTES # (AUTO) 1.2 X10'3 (0-0.9); MONOCYTES % (AUTO) 11.3 % (2-12); NEUTROPHILS # (AUTO) 7.3 X10'3 (1.8-7.7); PLATELET COUNT 60 X10'3 (140-440); RED BLOOD COUNT 4.64 X10'6 (4.20-5.60); RED CELL DISTRIBUTION WIDTH 13.5 % (11.5-14.5)
[2020-02-19 12:25] LABS: ALANINE AMINOTRANSFERASE 63 U/L (12-78); ALBUMIN/GLOBULIN RATIO 1.1 (1.1-1.5); ALKALINE PHOSPHATASE 82 IU/L (46-116); ANION GAP 9 (8-16); ASPARTATE AMINO TRANSFERASE 42 U/L (10-37); BILIRUBIN,TOTAL 0.5 MG/DL (0.1-1.0); BLOOD UREA NITROGEN 15 MG/DL (7-18); CALCIUM 8.8 MG/DL (8.5-10.1); CHLORIDE 103 MMOL/L (99-107); CREATININE 0.88 MG/DL (0.40-0.90); ETHANOL < 0.010 GM/DL (0.0-0.010); GLUCOSE 112 MG/DL (70-104); POTASSIUM 3.9 MMOL/L (3.5-5.1); SODIUM 138 MMOL/L (135-145); TOTAL CARBON DIOXIDE 25.7 MMOL/L (24-32); TOTAL PROTEIN 7.6 G/DL (6.4-8.2); eGFR 80 ML/MIN
--- NOTE | 2020-02-19 12:46 | NUR ---
arrived to ER overflow bed 26. anxious. talking fast. in green scrubs.
[2020-02-19 13:03] LABS: URINE HCG NEGATIVE (NEG)
--- NOTE | 2020-02-19 13:19 | NUR ---
manic. took Seroquel with ease. walking around the unit, up and own from bed, talking to another pt. continuously asking for food. singing frequantly and writting down lyrics to songs she made up.
[2020-02-19 13:24] LABS: URINE AMPHETAMINE SCREEN NEGATIVE (Neg); URINE BARBITUATE SCREEN NEGATIVE (Neg); URINE BENZODIAZEPINES SCREEN NEGATIVE (Neg); URINE CANNABINOID SCREEN POSITIVE (Neg); URINE COCAINE SCREEN NEGATIVE (Neg); URINE METHADONE SCREEN NEGATIVE (Neg); URINE OPIATE SCREEN NEGATIVE (Neg); URINE PHENCYCLIDINE SCREEN NEGATIVE (Neg)
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
--- NOTE | 2020-02-19 13:48 | NUR ---
primary rn was sent on a lunch break. pt requesting another meal tray, dietary and provider were advised
[2020-02-19] MEDS ORDERED: ziprasidone 20mg capsule PO ONE (14:05)
--- NOTE | 2020-02-19 14:05 | NUR ---
pt very loud and slightly agitated, provider made aware, 20mg of geodon verbal order was given
--- NOTE | 2020-02-19 14:24 | NUR ---
Zach with SCM at bedside.
--- NOTE | 2020-02-19 14:43 | NUR ---
pt c/o severe constipation. needy, walking around the unit. Dr. Beckman aware of constipation but stated he didn't want to order anything because he's not sure if pt really is constipated. Pt heavily focused on constipation. Prune juice given.
--- NOTE | 2020-02-19 15:25 | NUR ---
pt manic, not cooperative. constantly having to be redirected. very loud. transferred back to main ER room 14.
--- NOTE | 2020-02-19 15:30 | NUR ---
ASSUMED CARE OF PT
[2020-02-19] MEDS ORDERED: haloperidol lactate 5mg/ml inj IM PRN (15:35)
[2020-02-19] MEDS ORDERED: quetiapine 100mg tablet PO PRN (15:35)
--- NOTE | 2020-02-19 15:36 | NUR ---
PT REQUIRES ONE TO ONE SITTER, NEEDS CONSTANT REDIRECTION, HAS BEEN EVALUATED BY [facility],
--- NOTE | 2020-02-19 15:38 | NUR ---
[facility] CALLED FOR RECOMMENDATIONS ON MEDICATIONS FOR PT. RECOMMENDATION GIVEN RESTORIL 30MG HS, HALDOL 10MG IM Q6HR PRN AGGITATION; SERIQUEL 400MG QDAY PRN AGGITATION. Alden MENESES NOTIFIED AND VERBAL ORDER ENTERED FOR RECOMMENDED MEDICATION TO PHARMACY
[2020-02-19] MEDS ORDERED: morphine 2 MG/ML inj. syringe IV PRN (15:45)
--- NOTE | 2020-02-19 16:06 | NUR ---
pt compliant with taking medications, needed reassurance for giving medication, gave pt apple juice and orange
--- NOTE | 2020-02-19 16:40 | NUR ---
[facility] STILL HASN'T RECEIVED [id number], WILL FAX TO [facility] PER OK FROM [facility]
--- NOTE | 2020-02-19 17:17 | NUR ---
pt amb with steady gait to restroom with RN, pt is cooperative, very talkative
[2020-02-19] MEDS ORDERED: ziprasidone 20mg capsule PO SCH (20:00)
[2020-02-19] MEDS ORDERED: temazepam 15mg capsule PO SCH (21:00)
== END 2020-02-19 17:39 ==
LOC: ER 11:36
DX: F29 Unspecified psychosis not due to a substance or known physiological condition (principal); F31.9 Bipolar disorder, unspecified; F12.90 Cannabis use, unspecified, uncomplicated; Z72.89 Other problems related to lifestyle; Z88.8 Allergy status to other drugs, medicaments and biological substances; Z79.899 Other long term (current) drug therapy
CPT/HCPCS: 36415; 80053; 80305; 80320; 81025; 85025; 96372; 99285; J1200; J1630

== ENCOUNTER 2024-02-12 15:54 | Outpatient (CLI) | payer MEDICAID ==
[~2024-02-12 15:54] MED LIST changes: +ATI1T PO; +CLON0.1T2 PO; +DIPH-423 PO; -DIPH50CA3 PO; +DOCU100C40 PO; -HALO5TAB PO; -KEN0.1O TP; +KETO120S5 TP; +MULT-25 PO; +PALI3TAB5 PO; +PANT40TA54 PO; -PRAZ2CAP2 PO; -PROP20TA6 PO; -QUET100T33 PO; -QUET400T12 PO; +TRAZ-251 PO; +ZIPR20CA2 PO
== END 2024-02-12 23:59 | disposition home or self-care (01) ==
LOC: RAD 15:54
PROVIDERS: ATTEND Family Medicine
DX: M54.2 Cervicalgia (principal)
CPT/HCPCS: 72040